=== PATIENT | female | born 1960 | race Caucasian/White ===

== ENCOUNTER 2017-08-30 05:22 | Day surgery (SDC) | payer OTHER ==
[~2017-08-30 05:22] MED LIST: TOVIAZ8 MG PO; VASOTEC10 MG PO; ZANTAC150 M3 PO; ZOCOR20 MG PO
[2017-08-30] MEDS ORDERED: MACROBID 100 M100 MG PO (09:23)
[2017-08-30] MEDS ORDERED: ULTRACET PO (09:24)
== END 2017-08-30 12:15 | disposition home or self-care (01) ==
LOC: CIR.AMB 05:22
DX: N39.3 Stress incontinence (female) (male) (principal)
CPT/HCPCS: 57288; C1771